=== PATIENT | male | born 1975 | race Caucasian/White ===

== ENCOUNTER 2018-02-10 13:20 | Emergency (ER) | payer OTHER ==
[~2018-02-10] VITALS: Ht 177.8 cm; Wt 103.6 kg
[~2018-02-10 13:20] MED LIST: PERCOCET 5/31 TABLET PO; ZANTAC150 MG PO
[2018-02-10] MEDS ORDERED: AUGMENTIN875 MG PO (15:27)
[2018-02-10 15:47] VITALS: BP 137/84
== END 2018-02-10 15:49 | disposition home or self-care (01) ==
LOC: EME 13:20
DX: S60.471A Other superficial bite of left index finger, initial encounter (principal); W55.01XA Bitten by cat, initial encounter; Z29.14 Encounter for prophylactic rabies immune globulin; Z23 Encounter for immunization; Z20.3 Contact with and (suspected) exposure to rabies
CPT/HCPCS: 99281; 99283